=== PATIENT | female | born 1965 | race Caucasian/White ===

== ENCOUNTER → 2016-05-31 | Outpatient (CLI) | payer SELFPAY ==
[~2016-05-31] MED LIST: ARIP10TA9 PO
--- NOTE | 2016-05-31 12:44 | DI ---
Indication: ITS.REASON: R10.30 RT GROIN PAIN; M70.71 ILIOPSOAS PROCEDURE: HIP RIGHT 2 VIEW: Encounter: Initial Comparison: None Findings: There is joint space narrowing, sclerosis, subcortical cyst formation, and hypertrophic changes of the right hip joint. Prominent superior acetabular osteophytes with a laterally oriented "bump" of the lateral femoral head consistent with anatomic features associated with femoral acetabular impingement. There is no evidence of acute traumatic variation. No aggressive lesions. Impression: 1. Advanced degenerative changes of the right hip. 2. 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 .
== END ==
LOC: IMA 12:11
PROVIDERS: ATTEND Registered Nurse
DX: M16.11 Unilateral primary osteoarthritis, right hip (principal); R93.7 Abnormal findings on diagnostic imaging of other parts of musculoskeletal system; R10.30 Lower abdominal pain, unspecified

== ENCOUNTER 2016-09-21 11:50 | Inpatient (IN) ==
[2016-10-19] MEDS ORDERED: MELOXICAM 15 MG TABLET PO ONE (06:00)
[2016-10-19] MEDS ORDERED: METOCLOPRAMIDE 10mg/2ml INJECTION IVP ONE (06:00)
[2016-10-19] MEDS ORDERED: DEXAMETHASONE 4 MG/ML INJECTION IVP ONE (06:00)
[2016-10-19] MEDS ORDERED: ACETAMINOPHEN 500 MG TABLET PO ONE (06:00)
[2016-10-19] MEDS ORDERED: TRANEXAMIC ACID 1,000 MG in NS 100 ML IV ONE ×2 (06:00→07:00)
[2016-10-19] MEDS ORDERED: FAMOTIDINE PB 20 MG/50 ML BAG IV ONE (06:00)
[2016-10-19] MEDS ORDERED: NOZIN NASAL SWAB NAS ONE ×2 (06:00→10:51)
[2016-10-19] MEDS ORDERED: LIDOCAINE 1% (10mg/ml) 2mL INJ PF SDV ID ONE (06:00)
[2016-10-19] MEDS ORDERED: CLINDAMYCIN PB 900 MG/50 ML BAG IV ONE (06:00)
[2016-10-19] MEDS ORDERED: ONDANSETRON 4 MG/2 ML INJECTION IVP ONE (06:00)
[2016-10-19 06:05] VITALS: BMI 42.0
[2016-10-19] MEDS: LR 1,000 ML IV SCH ×2 (06:37→08:57)
[2016-10-19] MEDS ORDERED: PROPOFOL 500 MG/50 ML VIAL IV ONE (06:39)
[2016-10-19] MEDS ORDERED: VANCOMYCIN 1,000 MG INJECTION ONE (06:45)
[2016-10-19] MEDS ORDERED: MIDAZOLAM 2mg/2ml INJECTION IVP ONE (06:50)
--- NOTE | 2016-10-19 06:50 | Anesthesia Preoperative Report ---
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 Proposed Procedure: Right MIGUEL NPO Since Date: 10/19/16 NPO Since Time: 05:00 Allergies/Adverse Reactions: Allergies Allergy/AdvReac Type Severity Reaction Status Date / Time Penicillins AdvReac Unknown States Verified 10/19/16 06:09 grandfather from it - Vital Signs Vital Signs: Temperature 98.1 F 10/19/16 06:05 Pulse Rate 79 10/19/16 06:11 Respiratory Rate 15 10/19/16 06:05 Blood Pressure 117/78 10/19/16 06:05 Pulse Oximetry 99 10/19/16 06:05 Oxygen Delivery Method Room Air Height and Weight: Height 1.68 m Weight 118 kg Body Mass Index 42.0 - Medications Inpatient Medications: Current Medications Epinephrine HCl 0.25 mg/Bupivacaine HCl 30 ml/Morphine Sulfate 15 mg/Ketorolac Tromethamine 60 mg/Sodium Chloride 65.25 mls @ 0 mls/hr OPSITE INTRAOP ONE; Per Protocol PRN Reason: Protocol Stop: 10/19/16 08:01 Tranexamic Acid 1,000 mg/ (Sodium Chloride) 110 mls @ 660 mls/hr IV INTRAOP ONE Stop: 10/19/16 07:09 Lactated Ringer's (Lactated Ringers) 1,000 mls @ 50 mls/hr IV .Q20H NORM Last Admin: 10/19/16 06:37 Dose: 50 mls/hr Sodium Chloride (Iv Flush) 10 - 80 ml IVF PRN PRN PRN Reason: [place] Home Medications: Home Medications Medication Instructions Recorded Confirmed Type trazodone 50 mg tablet 50 mg PO HS tab 08/20/16 10/19/16 History Mobic (Meloxicam) 15 mg tablet 15 mg PO DAILY tab 10/04/16 10/19/16 History cariprazine 1.5 mg capsule 1.5 mg PO DAILY 10/04/16 10/19/16 History - Medical History Gastrointestional: Reports: Morbid Obesity Neuro/Musculoskeletal: Reports: Depression - Surgical History GI Surgery/Treatments: Reports: Cholecystectomy (lap) Anesthesia Reactions: None Hx Family Anesthesia Reaction: No History of Motion Sickness: No - Social History Smoking Status: Former smoker Hx Chewing Tobacco Use: No Second Hand Exposure: No Substance Use Type: does not use Alcohol Intake Frequency: does not drink - Pertinent Findings EKG Rhythm: Normal Sinus Rhythm - Physical Exam Respiratory Exam: Present: lungs clear Cardiovascular Exam: Present: regular rate and rhythm, no murmur - Airway Assessment Mallampati Score: III TMD: 3 Fingerbreadths Neck Extension: good Teeth: chipped teeth/crowns Overall Assessment: may be difficult mask vent, may be difficult intubation - ASA ASA Score: 2 - Plan Regional/Trunk Block: Spinal - Discussion Discussion: Discussed risks/options/alternatives of anesthesia and questions answered. Patient consents. Nursing pain assessment noted. Present for Discussion: family member Attestation Statement: Prior to the delivery of any anesthetic medication, I examined the patient, developed the plan, obtained the patient's consent and discussed the risk and benefits of the procedure with the patient/guardian. - Additional Information Seen by Anesthesia: Yes
--- NOTE | 2016-10-19 07:14 | History & Physical Update ---
- History and Physical Update Date: 10/19/16 Update: I evaluated this patient and found no changes in the history and clinical exam findings. The treatment plan and recommendations are also unchanged from the previous documentation.
[2016-10-19] MEDS ORDERED: LIDOCAINE 2% JELLY Tube 30ml ONE (07:40)
[2016-10-19] MEDS ORDERED: EPINEPHrine 0.25 MG, BUPIVACAINE 0.25% PF 30 ML, MORPHINE SULFATE 15 MG, KETOROLAC INJ ... OPSITE ONE (08:00)
[2016-10-19] MEDS ORDERED: PROPOFOL 40 ML ONE ×2 (08:02→08:34)
[2016-10-19] MEDS ORDERED: PHENYLEPHRINE INJ 10 MG/ML VIAL IV ONE (08:12)
[2016-10-19] MEDS ORDERED: VANCOMYCIN 1,000 MG INJECTION IAR ONE (09:00)
[2016-10-19] MEDS ORDERED: PROPOFOL 20 ML ONE (09:12)
--- NOTE | 2016-10-19 09:23 | Operative Note ---
- Procedure Date of Admission: 10/19/16 Side: right Preoperative Diagnosis: hip primary DJD Postoperative Diagnosis: Same as preoperative diagnosis. Operation: total hip arthroplasty Surgeon: Anjana Connelly MD [employer] Instructor: Gerardo Rollins Complications: None. Regional/Trunk Block: Spinal Estimated Blood Loss: See Anesthesia Record. Fluids: Please see Anesthesia Record. Description of Procedure: Mrs. Roberts and her right hip were identified and marked in the preoperative holding area. She was brought back to the operating suite and spinal anesthetic was administered. She was then placed in a lateral decubitus position with her right hip up. The right lower extremity was prepped and draped in my normal sterile fashion. Timeout was performed. The [employer] robotic arm was used to assist with the surgery. A posterior approach was utilized. The patient's body habitus made this surgery more difficult. An approximately 20 cm incision was made in the skin and dissection carried down to the muscle fascia which was then split in line with skin incision. A checkpoint was placed in the greater trochanter. The short external rotators were identified and tagged and detached. A capsulotomy was performed and the hip dislocated. A femoral neck osteotomy was performed at the pre-templated level measuring down from the femoral head 50mm. The head was removed and acetabulum exposed. Labrum was removed. A checkpoint was placed superior to the acetabulum. The acetabulum was then registered with the robot. The robotic arm was then used to ream with a 49 reamer. The robot then was again used to place a 50 Trident cup in 40 of tilt and 25 of anteversion. The cup had excellent rim fit and therefore left it a bit proud. It was checked multiple times and again found be very stable. A liner was then placed. The proximal femur was exposed and prepared with a cookie cutter followed by reaming and broaching to a size 4. We trialed with a 0 head. After thorough irrigation a final Accolade 2 size 4 stem with 132 neck was placed. Leg length and offset were checked with the robot and were good. A final -2.5 ceramic head was placed and the hip reduced. Betadine solution was used to irrigate throughout the case. It was followed by normal saline irrigation. Joint cocktail was injected throughout soft tissue. The capsulotomy was repaired with Ethibond. Short external rotators were also repaired with Ethibond. 1 g of vancomycin powder was placed into the wound. The muscle fascia was then repaired with #1 Vicryl. I then left my system to close the subcutaneous tissue with 2-0 Vicryl followed by running 4 -0 Monocryl skin followed by Dermabond and a sterile dressing. Because of the patient's large lateral soft tissue thickness I did use a wound VAC over the incision. The patient with any placed back into supine position and taken to recovery room in the care of anesthesia.
--- NOTE | 2016-10-19 10:20 | Anesthesia Postoperative Note ---
- Date and Time Date: 10/19/16 Time: 10:20 - Status Patient Participated in Evaluation: Patient Participated in Person Vital Signs: Temperature 96.9 F 10/19/16 09:50 Pulse Rate 75 10/19/16 10:05 Respiratory Rate 24 10/19/16 10:05 Blood Pressure 76/51 10/19/16 10:05 Pulse Oximetry 97 10/19/16 10:05 Oxygen Delivery Method Room Air Respiratory Function: Airway Patent Cardiovascular Function: Regular Pulse EKG Rhythm: Normal Sinus Rhythm Mental Status: Alert and Oriented Pain Intensity: 0 Hydration: Taking PO Fluids, IV Infusing Complications During Recover: None Apparent - Follow-Up Instructions Instructions: Per Surgeon
[2016-10-19] MEDS ORDERED: CARIPRAZINE HCL 1.5 MG PO SCH (10:51)
[2016-10-19] MEDS ORDERED: DiphenhydrAMINE 50 MG/ML INJECTION IVP PRN (10:51)
[2016-10-19] MEDS ORDERED: Oxycodone *IR* 5 MG TABLET PO PRN (10:51)
[2016-10-19] MEDS ORDERED: ONDANSETRON 4 MG/2 ML INJECTION IVP PRN (10:51)
[2016-10-19] MEDS ORDERED: LORazepam 1 MG TABLET PO PRN (10:51)
[2016-10-19] MEDS ORDERED: DiphenhydrAMINE 25 MG CAPSULE PO PRN (10:51)
[2016-10-19] MEDS ORDERED: SALINE FLUSH 10ml SYRINGE IVF PRN (11:10)
[2016-10-19] MEDS: NS 1,000 ML IV SCH (11:18)
--- NOTE | 2016-10-19 11:52 | XRay Report ---
Indication: postoperative image PROCEDURE: XR pelvis w/ 1 view RT hip: Encounter: Initial Comparison: None Findings: Postoperative changes of right total hip replacement are seen. There is expected postoperative subcutaneous gas. No evidence of hardware failure or acute fracture. No retained radiopaque surgical instruments or sponges seen. Impression: New right total hip prosthesis without evidence of immediate complication. .
[2016-10-19] MEDS: ACETAMINOPHEN 325 MG TABLET PO SCH ×4 (11:55→22:03)
[2016-10-19] MEDS: ASPIRIN *EC* 325 MG TABLET PO SCH ×2 (12:10→22:02)
[2016-10-19] MEDS: DOCUSATE SODIUM 100 MG CAPSULE PO SCH ×2 (12:10→22:02)
[2016-10-19] MEDS: POLYETHYL GLYCOL 3350 17gm PACKET PO SCH (12:10)
[2016-10-19] MEDS: MELOXICAM 15 MG TABLET PO SCH (12:27)
[2016-10-19] MEDS: NOZIN NASAL SWAB NAS SCH ×2 (13:16→22:06)
[2016-10-19] MEDS: CLINDAMYCIN PB 900 MG/50 ML BAG IV SCH ×2 (13:16→18:50)
[2016-10-19] MEDS ORDERED: SENNOSIDES 8.6 MG TABLET PO SCH (21:00)
[2016-10-19] MEDS ORDERED: TRAZODONE 50 MG TABLET PO SCH (21:00)
[2016-10-20 00:34] VITALS: RESP 16
[2016-10-20] MEDS: CLINDAMYCIN PB 900 MG/50 ML BAG IV SCH (00:38)
[2016-10-20] MEDS: NS 1,000 ML IV SCH ×2 (02:17→13:17)
[2016-10-20] MEDS: NOZIN NASAL SWAB NAS SCH ×2 (06:48→13:14)
[2016-10-20] MEDS ORDERED: SENNOSIDES 8.6 MG TABLET PO PRN (07:15)
[2016-10-20 07:22] VITALS: TEMP 96.9
[2016-10-20] MEDS ORDERED: CARIPRAZINE HCL 1.5 MG PO SCH (09:00)
--- NOTE | 2016-10-20 09:14 | Orthopedic Progress Note ---
Date: Subjective/Severity of Illness: Trisha had a Rt MIGUEL 10/19. Pain is well controlled. She has been mobile short distances with good tolerance. Denies CP, cough or SOA. She is on several psych / depression meds and we will get those re started. No other concerns this AM. She has about 7 steps to get in her appt and will need to navigate those before returning home. She plans to live with a sister for a short time after discharge from the hospital. An incisional wound vac is being used and she will need to be seen in 1 week to have that removed. Orthopedic Objective PO Vital signs: Temperature 96.9 F 10/20/16 07:21 Pulse Rate 74 10/20/16 07:21 Respiratory Rate 16 10/20/16 07:21 Blood Pressure 111/73 10/20/16 07:21 Pulse Oximetry 100 10/20/16 07:21 Oxygen Delivery Method Room Air Height and Weight: Height 5 ft 6 in Weight 266 lb 1.567 oz Body Mass Index 42.0 - Constitutional General Appearance: Present: alert, no acute distress, morbidly obese - Respiratory Exam Present: non-labored - Cardiovascular Exam Present: pedal pulses intact Capillary Refill: < 2-3 Seconds - Extremities Exam Extremities: Absent: calf tenderness - Surgical Site Incision: dressing intact (Incisional wound vac in place.), no drainage, other ( Pin sites from robotic pins look dry. No erythema.) - Integumentary Exam Present: pink, warm, dry - Neurological Exam Present: no deficits - Psychiatric Exam Present: alert, normal affect - Labs Result Diagrams: 10/20/16 05:01 10/20/16 05:01 Abnormal lab results 10/20/16 Range/Units 05:01 Sodium 145 H (134-144) MEQ/L Chloride 111 H (98-107) MEQ/L Creatinine 0.6 L (0.7-1.2) MG/DL Glucose 118 H (65-110) MG/DL H & H 10/20/16 Range/Units 05:01 Hgb 12.1 (12-16) GM/DL Hct 36.9 (36-46) % Orthopedic Assessment and Plan (1) Primary osteoarthritis of right hip Status: Acute Assessment and Plan: Aspirin protocol for VTE prophylaxis. SCD's and early mobilization for added DVT coverage. PT/OT services to improve independent function. Resume psych / depression meds. Discharge Planning per Case Management. She has been evaluated by PT/OT and she will benefit from outpatient therapy to improve gait and increase her independence. Hospital Course Summary Disclaimer: The visit summary below is not to be considered part of the above Progress Note.
[2016-10-20] MEDS: MELOXICAM 15 MG TABLET PO SCH (09:57)
[2016-10-20] MEDS: DOCUSATE SODIUM 100 MG CAPSULE PO SCH (09:58)
[2016-10-20] MEDS: POLYETHYL GLYCOL 3350 17gm PACKET PO SCH (09:58)
[2016-10-20] MEDS: ACETAMINOPHEN 325 MG TABLET PO SCH ×2 (09:58→13:14)
[2016-10-20] MEDS: ASPIRIN *EC* 325 MG TABLET PO SCH (09:58)
[2016-10-20 12:43] VITALS: BP 112/83; PULSE 64; O2SAT 99
--- NOTE | 2016-10-20 13:43 | Discharge Summary ---
Orthopedic Discharge Info Date of admission: 10/19/16 05:42 Primary care physician: Hailee Steve APRN Attending Physician: Dipesh Connelly MD Consults: 10/19/16 05:31 Consult to Anesthesiology [CONS] Routine Consulting Provider: GLORY Douglas Reason For Exam: Preoperative Assessment 10/19/16 10:51 Case Management Consult [CONS] Routine Reason For Exam: Discharge Planning DME-Walker [CONS] Routine Height: 5 ft 6 in Weight: 260 lb 2.327 oz Comment: change dressing in 2 weeks Total Joint Outpatient Therapy [CONS] Routine Comment: change dressing in 2 weeks - Discharge Diagnosis (1) Primary osteoarthritis of right hip Status: Acute - Laboratory Result Diagrams: 10/20/16 05:01 10/20/16 05:01 Laboratory: Abnormal lab results 10/20/16 Range/Units 05:01 Sodium 145 H (134-144) MEQ/L Chloride 111 H (98-107) MEQ/L Creatinine 0.6 L (0.7-1.2) MG/DL Glucose 118 H (65-110) MG/DL H & H 10/20/16 Range/Units 05:01 Hgb 12.1 (12-16) GM/DL Hct 36.9 (36-46) % Orthopedic Discharge HPI - HPI Comments This patient was admitted for elective surgical tx of end stage degenerative joint disease that failed to respond to conservative treatment. Further details of this is found in the admission H&P. Orthopedic Hospital Course Ongoing care required?: No Comments: After appropriate preoperative clearance and signing of operative consent, the patient was given IV antibiotics, according to orthopedic protocol. The patient was taken to the operating room and underwent elective joint arthroplasty. Following surgery, antibiotics were discontinued less than 24 hours according to joint protocol. Appropriate anticoagulants were initiated and SCDs added for DVT prevention. The dressing was clean, dry, and intact. Pain control was obtained via multimodal approach. Bowel motivation addressed with scheduled and PRN medications. Early mobilization was initiated through PT services. Discharge arrangements made by a collaborative effort between the patient and Case Management. Follow-up is scheduled in 2-3 weeks. Discharge instructions given by orthopedic providers and nursing staff at discharge. Discharge condition was good. Discharge Plan - Med Rec/Dispo Referrals/Follow Up: Dipesh Connelly MD [Physician] - 11/10/16 9:30 am [place] Instructions: [facility] General Instructions, [facility] Postop Instructions Prescriptions: No Action Mobic (Meloxicam) 15 mg tablet 15 mg PO DAILY tab trazodone 50 mg tablet 50 mg PO HS tab cariprazine 1.5 mg capsule 1.5 mg PO DAILY
--- NOTE | 2016-10-20 13:46 | Discharge Instructions ---
Discharge Plan - Med Rec/Dispo Referrals/Follow Up: Dipesh Connelly MD [Physician] - 11/10/16 9:30 am [place] Instructions: [facility] [place] [facility] [place] [facility] Inst[facility], [facility] [place] [facility] Postop Instructions Prescriptions: New Oxycodone *Ir* [Roxicodone *Ir*] 5 - 15 mg PO Q3H PRN #30 tablet PRN Reason: Breakthrough Pain Aspirin *EC* [Ecotrin] 325 mg PO BID #84 tablet Acetaminophen [Tylenol] 650 mg PO QID #100 tablet Continue Meloxicam 15 mg PO DAILY #30 tab trazodone 50 mg tablet 50 mg PO HS tab cariprazine 1.5 mg capsule 1.5 mg PO DAILY - Disposition 01 Discharged Home, Self-Care
[2016-10-21] MEDS ORDERED: BISACODYL 10 MG SUPPOSITORY RECTALLY SCH (20:00)
== END 2016-10-20 16:00 | disposition home or self-care (01) | DRG 470 ==
LOC: SRG 10-19 05:42
PROVIDERS: ADMIT Orthopaedic Surgery; ATTEND Orthopaedic Surgery